=== PATIENT | female | born 1965 | race African-American/Black ===

== ENCOUNTER 2016-12-13 09:34 | Emergency (ER) | payer BC ==
[~2016-12-13] VITALS: Ht 170.2 cm; Wt 72.6 kg
[2016-12-13 10:02] VITALS: BP 152/84
[2016-12-13] MEDS ORDERED: TENORMIN50 MG ORAL (10:06)
[2016-12-13] MEDS ORDERED: TAMOXIFEN CITRA20 MG ORAL (10:06)
[2016-12-13] MEDS ORDERED: KLONOPIN0.5 MG ORAL (10:06)
[2016-12-13] MEDS ORDERED: HYDROCHLOROTHIA25 MG ORAL (10:06)
[2016-12-13] MEDS ORDERED: OCUFLOX5 ML OP (10:23)
[2016-12-13 10:39] VITALS: BP 152/84
--- NOTE | 2016-12-13 10:48 | Emergency Room Report ---
History of Present Illness General Chief Complaint: Eye Problems Source: Patient Present Illness HPI 51-year-old female presents to ED complaining of right eye pain and tearing sensation x3 days. Patient states she normally wears contacts. States that she 's been unable to wear her contacts in last 3 days because the pain. Denies any photophobia or change in visual acuity. Denies discharge. Pain is throbbing, 8/10, nonradiating. No other aggravating relieving factors. Denies any other associated symptoms Allergies: Coded Allergies: MORPHINE (Verified Allergy, Unknown, 12/13/16) SULFA (SULFONAMIDE ANTIBIOTICS) (Verified Allergy, Unknown, 12/13/16) Patient History Past Medical History: HTN, other - breast ca Past Surgical History: none Pertinent Family History: none Social History: Denies: alcohol use, drug use, smoking Last Menstrual Period: Irregular Now: No Immunizations: UTD Reviewed Nursing Documentation: PMH: Agreed, PSxH: Agreed Nursing Documentation-PMH Hx Hypertension: Yes Hx Cancer: Yes - Breast Review of Systems All Other Systems: negative except mentioned in HPI Physical Exam Vital Signs Date Time Temp Pulse Resp B/P Pulse Ox O2 Delivery O2 Flow Rate FiO2 12/13/16 09:37 98.2 81 16 155/87 98 Room Air Sp02 EP Interpretation: reviewed, normal General Appearance: no apparent distress, alert, GCS 15, non-toxic Head: normocephalic Eyes: right eye Scleral Injection, left eye normal inspection, bilateral eye EOMI, bilateral eye PERRL ENT: hearing grossly normal, normal pharynx, no angioedema, normal voice Neck: normal inspection Respiratory: normal inspection Cardiovascular #1: normal inspection Gastrointestinal: normal inspection Rectal: deferred Genitourinary: no CVA tenderness Musculoskeletal: normal inspection Neurologic: alert, oriented x3, responsive, motor strength/tone normal, sensory intact, speech normal Psychiatric: normal inspection Skin: normal inspection Lymphatic: normal inspection Medical Decision Making Diagnostic Impression: Primary Impression: Conjunctivitis Qualified Codes: H10.9 - Unspecified conjunctivitis ER Course Hospital Course 51-year-old F presents to ED with R eye redness and watery discharge Differential diagnoses include: conjunctivitis, traumatic iritis, foreign body, corneal abrasion Clinical course Patient placed on stretcher. After initial history, physical exam revealed a middle-aged female no acute distress. There is injected conjunctiva R eyes. Pupils equally reactive to light bilaterally. No evidence of foreign body. Clinical findings consistent with conjunctivitis. likely due to contact lens use we will prescribe opthalmic antibiotics. avoid contacts until symptoms completley resolve Diagnosis - conjunctivitis Stable and discharged to home with prescription for Ocuflox. Followup with PMD/ Optho. Return to ED if symptoms recur or worsen Last Vital Signs Date Time Temp Pulse Resp B/P Pulse Ox O2 Delivery O2 Flow Rate FiO2 12/13/16 10:39 98.1 84 15 152/84 99 Room Air Status: improved Disposition: HOME, SELF-CARE Condition: Stable Scripts Ofloxacin (OCUFLOX) 5 Ml Drops 1 DROP OP QID for 7 Days, ML Prov: MIRIAM GLYNN M.D. 12/13/16 Patient Instructions: Bacterial Conjunctivitis MIRIAM GLYNN M.D. Dec 13, 2016 10:48
== END 2016-12-13 10:43 | disposition home or self-care (01) ==
LOC: EMR 10:17
DX: H10.9 Unspecified conjunctivitis (principal); Z88.6 Allergy status to analgesic agent; Z88.2 Allergy status to sulfonamides; I10 Essential (primary) hypertension; Z85.3 Personal history of malignant neoplasm of breast
CPT/HCPCS: 99283